=== PATIENT | male | born 1945 | race Caucasian/White ===

== ENCOUNTER 2017-03-26 19:44 | Emergency (ER) | payer MEDICARE, OTHER ==
[~2017-03-26] VITALS: Ht 193 cm; Wt 111.4 kg
--- NOTE | 2017-03-26 19:46 | ED.REPORT ---
HPI-General Illness Date of Service Mar 26, 2017 ED Provider: He Henderson MD Patient is a 71 year old male with a history of WPW and previous ablation who presents to the ED via EMS due to tachycardia. Associated symptoms include chest pain and pain that radiated into his left shoulder. He denies shortness of breath or other symptoms at this time. En route the patient was given 6mg and 12mg of adenosine without conversion. The patient presents to the ED with ongoing tachycardia heart rate of 140. He states that he has not had an episode of SVT since his ablation in 1999. Patient admits that he has been prescribed carvedilol 25 mg twice daily but has been taking it only once daily for the last week as he is currently traveling from [place] and was running low on his medication. Nursing Notes Stated Complaint: RAPID HEART RATE Nursing Notes Reviewed: Yes Allergies: Coded Allergies: JANIE Inhibitors (Verified Allergy, Severe, anaphylatic reaction., 03/26/17) Scheduled Carvedilol (Carvedilol) 25 Mg Tablet 25 MG PO BID General Time Seen by MD: 19:45 Chief Complaint Other (tachycardia) Hx Obtained From: Patient, EMS Arrived By: Ambulance Sudden in Onset?: Yes Onset Occurred: Just prior to arrival Severity: Current: No pain currently Similar Sx Previous: Yes Past Medical History Past Medical History WPW Past Surgical History ablation Smoking History Unknown if Ever Smoker Social History Other Social History: From out of town, Visiting locally Ambulatory Status Independent Review of Systems Full Review of Systems Constitutional: Denies: Chills, Fever Respiratory: Denies: Non-productive cough, Shortness of breath Cardiovascular: Reports: Chest pain, Palpitations Musculoskeletal: Reports: Extremity pain Allergy / Immune: Denies: Hives, Itching Neurologic: Denies: Numbness, Weakness Complete sys rev & neg: except as marked. Physical Exam Vital Signs Vital Signs Date Time Temp Pulse Resp B/P Pulse Ox O2 Delivery O2 Flow Rate FiO2 03/26/17 21:41 36.9 88 16 168/88 98 Room Air 03/26/17 20:02 36.8 138 28 181/123 95 Room Air Initial VS: Reviewed General/Constitutional: Awake, Alert, No acute distress Head / Eyes: Atraumatic, Normocephalic, PERRL, EOMI Neck: Atraumatic, Supple Respiratory / Chest: Atraumatic, Breath sounds NL, Breath sounds = bilat, No respiratory distress Lower Extremity / Pelvis / MS: Atraumatic, No swelling, Non-tender Skin: Atraumatic, Color NL, No rash, Warm, Dry Neurologic: Oriented X3, Speech NL Psychiatric: Affect NL, Mood NL Interpretation & Diagnostics Lab Results Interpretation Result Diagram: 03/26/17194703/26/171947 Test 03/26/17 19:48 White Blood Count 5.9th/mm3 (3.8-10.1) Red Blood Count 5.61mil/mm3 (4.40-5.80) Hemoglobin 16.7g/dL (13.8-17.2) Hematocrit 48.9% (41.0-50.0) Mean Corpuscular Volume 87.2fL (81-100) Mean Corpuscular Hemoglobin 29.8pg (27.0-35.0) Mean Corpuscular Hemoglobin Concent 34.2% (32.0-37.0) Red Cell Distribution Width 13.1% (12.3-15.4) Platelet Count 209bil/L (150-400) Neutrophils (%) (Auto) 68.7% (40-74) Lymphocytes (%) (Auto) 12.8% (14-46) Monocytes (%) (Auto) 10.6% (4-12) Eosinophils (%) (Auto) 7.4% (0-5) Basophils (%) (Auto) 0.5% (0-3) Sodium Level 138mEq/L (134-144) Potassium Level 4.3mEq/L (3.5-5.2) Chloride Level 101mEq/L (97-108) Carbon Dioxide Level 22mmol/L (18-29) Blood Urea Nitrogen 11mg/dL (8-27) Creatinine 0.94mg/dL (0.76-1.27) Estimat Glomerular Filtration Rate 85mL/min (>59) Glucose Level 122mg/dL (60-99) Calcium Level 9.8mg/dL (8.5-10.1) Magnesium Level 2.1mg/dL (1.6-2.6) Total Bilirubin 0.4mg/dL (0.0-1.2) Aspartate Amino Transf (AST/SGOT) 26U/L (0-50) Alanine Aminotransferase (ALT/SGPT) 24U/L (0-44) Alkaline Phosphatase 60U/L (25-160) Troponin T < 0.010ug/L (0.0-0.011) Total Protein 8.2g/dL (6.4-8.4) Albumin 4.4g/dL (3.4-5.0) Thyroid Stimulating Hormone (TSH) 2.290uIU/mL (0.450-4.500) ECG Interpretation ECG Interpretation: narrow complex tachycardia, rate 138 Interpreted by: ED physician X-Ray Chest Interpretation Chest Xray Interpretation: IMPRESSION: Left basilar atelectasis. Dictated by: Silvana Vazquez M.D. on 03/26/2017 at 20:23 Approved by: Silvana Vazquez M.D. on 03/26/2017 at 20:23 View: Portable, 1 view Interpretation / Wet Read by: Interpret - Radiologist Re-Eval/Medical Decision Med Decision/Clinical Course Patient is a 71 year old male with a history of WPW and previous ablation who presents to the ED via EMS due to tachycardia. Associated symptoms include chest pain and pain that radiated into his left shoulder. He denies shortness of breath or other symptoms at this time. En route the patient was given 6mg and 12mg of adenosine without conversion. The patient presents to the ED with ongoing tachycardia heart rate of 140. He states that he has not had an episode of SVT since his ablation in 1999. Patient admits that he has been prescribed carvedilol 25 mg twice daily but has been taking it only once daily for the last week as he is currently traveling from [place] and was running low on his medication. Upon arrival in the emergency department the patient was tachycardic with a heart rate in the 140s to 150s and no clearly discernible P waves. He was, thereafter noted to spontaneously convert to sinus rhythm. EKG on arrival demonstrated narrow complex tachycardia with 138bpm possible P waves before every QRS complex, no clearly discernible no obvious ischemic changes Repeat EKG after spontaneous conversion demonstrated sinus rhythm, 75bpm P waves before every QRS complex inferior Q waves present no ST segment elevation no T wave abnormalities compared to prior EKG, he is no longer in SVT Chest X-ray: IMPRESSION: Left basilar atelectasis. Labs: CBC unremarkable CMP unremarkable TSH within normal limits Trop negative Patient presents with supraventricular tachycardia that is now spontaneously resolved. I suspect that this is related to not taking his carvedilol as prescribed. He was given missed dose of carvedilol here in the emergency department. Patient was discussed in depth with cardiology and was not felt that he requires admission at this time. Patient did experience some transient chest discomfort associated with tachycardia though he has no history of coronary artery disease or previous MT. I suspect that this may have been some mild demand ischemia though his EKG after conversion demonstrates no ischemic changes and his troponin is negative. After discussing with cardiology does not felt that the patient should be admitted or received serial troponins at this time. Patient has been provided with a prescription for carvedilol and will resume taking as prescribed. He is advised to return immediately for any recurrent episodes of supraventricular tachycardia. Given that he will be in the region for the next month he has been advised to follow-up here with cardiology. Prior to discharge follow-up and return precautions were reviewed in detail with the patient who verbalized understanding and agreement with the plan. The patient was discharged in stable condition. Time of Eval: 21:00 Re-Evaluation/Progress Note: Discussed results and plan for discharge. Patient understands and agrees to plan. All questions were addressed. Consultation : Referral / Consult Name: Fran Puri MD Call Returned at: 20:13 Aitchbone Breaker: Agrees with eval, Agrees with plan Note: Consult with Dr. Puri, who recommends the patient start taking his full dose of Carvedilol and follow up outpatient Counseled Regarding: Diagnosis, Lab results, Need for follow-up, When/why to return to ED Discharge & Departure Primary Impression: SVT (supraventricular tachycardia) Additional Impressions: Chest pain Chest pain type: unspecified Qualified Code: R07.9 - Chest pain, unspecified Fpiqk-Iavwawptx-Awlny syndrome Demand ischemia of myocardium Disposition: Home Discharge Condition All VS Reviewed: Yes Condition: Stable Patient Instructions: Supraventricular Tachycardia (ED) Additional Instructions: Thank you for seeking care at the emergency room. It is difficult for us to make definitive diagnoses in the ED but we believe that you were experiencing SVT You spontaneously converted yourself into sinus rhythm. Our primary goal today in the Emergency Department was to evaluate you for any life-threatening conditions. Your evaluation was reassuring. You will be discharged with a prescription for Carvedilol. Continue to take this as you were previously prescribed. Follow up with the referred banjo repair person this week. You should return to the Emergency Department immediately if you develop a racing heart, shortness of breath, chest pain or any other concerning signs or symptoms. Thank you for letting us partake in your care today. Referrals: Fran Puri MD Crit Care Except Billable Proc Time Spent: 75-104 minutes Services Performed: Patient management by me, Time spent at bedside, Reviewing test results, Reviewing imaging, Discussing patient care, Documentation in record Scribe Attestation Portions of this note were transcribed by Trina Sullivan. I, Dr. Henderson personally performed the history, physical exam and medical decision-making; I reviewed and confirmed the accuracy of the information in the transcribed note. Signed by: Richelle Calero, 03/26/17 copies to: Fran Puri MD, Beck O MD Mar 26, 2017 19:46 Ana Luisa Sullivan Mar 26, 2017 20:08
[2017-03-26 19:56] LABS: BASOPHILS % (AUTO) 0.5 % (0-3); EOSINOPHILS % (AUTO) 7.4 % (0-5); MONOCYTES % (AUTO) 10.6 % (4-12); Mean Corpuscular Hemoglobin 29.8 pg (27.0-35.0); Mean Corpuscular Volume 87.2 fL (81-100); NEUTROPHILS % (AUTO) 68.7 % (40-74); Platelet Count 209 bil/L (150-400)
[2017-03-26 20:02] VITALS: BP 181/123; PULSE 138; RESP 28; O2SAT 95
[2017-03-26] MEDS ORDERED: CARV25TA2 PO (20:14)
--- NOTE | 2017-03-26 20:25 | DRSVH ---
PROCEDURE: X-RAY CHEST ONE VIEW, PORTABLE ([id number]) INDICATIONS: Chest pain and rapid heart rate. TECHNIQUE: One view of the chest was acquired. COMPARISON: None. FINDINGS: Surgical changes and devices: None. Lungs and pleura: There is left basilar atelectasis. No pleural effusions or pneumothorax. Mediastinum: Mediastinal contours appear normal. Heart size is normal. Bones and chest wall: No suspicious bony lesions. Overlying soft tissues appear unremarkable. IMPRESSION: Left basilar atelectasis. Dictated by: Silvana Vazquez M.D. on 03/26/2017 at 20:23 Approved by: Silvana Vazquez M.D. on 03/26/2017 at 20:23
[2017-03-26 20:27] LABS: TROPONIN T < 0.010 ug/L (0.0-0.011)
[2017-03-26 20:32] LABS: Magnesium 2.1 mg/dL (1.6-2.6)
[2017-03-26 21:41] VITALS: BP 168/88; PULSE 88; RESP 16; O2SAT 98
== END 2017-03-26 21:43 | disposition home or self-care (01) ==
LOC: SED 19:44
DX: I47.1 Supraventricular tachycardia (principal); I45.6 Pre-excitation syndrome; I20.9 Angina pectoris, unspecified; R07.89 Other chest pain; Z98.890 Other specified postprocedural states; Z88.8 Allergy status to other drugs, medicaments and biological substances